=== PATIENT | female | born 1950 | race Caucasian/White ===

== ENCOUNTER → 2019-07-14 13:21 | Outpatient (CLI) | payer MEDICARE, SELFPAY ==
--- NOTE | ~2019-07-14 | DEXA_ITS ---
Bone Density Report Name: Darshana Marin Age: 68 Sex: Female Ethnicity: White Date of : 1950 Indication: postmenopausal; screening for osteoporosis; Referring Provider: TAMARA, HAM Gusman Study: Bone densitometry was performed. Exam Date: July 14, 2019 Accession number: [id number] Bone Density: Region BMD T-score Z-score Classification AP Spine (L1-L4) 0.969 -0.7 1.2 Normal Femoral Neck (Left) 0.581 -2.4 -0.8 Osteopenia Total Hip (Left) 0.766 -1.4 -0.1 Osteopenia Femoral Neck (Right) 0.563 -2.6 -0.9 Osteoporosis Total Hip (Right) 0.763 -1.5 -0.1 Osteopenia Total Hip Mean 0.765 -1.5 -0.1 Osteopenia World Health Organization criteria for BMD impression classify patients as: Normal (T-score at or above -1.0), Osteopenia (T-score between -1.0 and -2.5), or Osteoporosis (T-score at or below -2.5). 10-year Fracture Risk: FRAX not reported because: Some T-score for Spine Total or Hip Total or Femoral Neck at or below -2.5 Previous Exams: Region Exam Age BMD T-score BMD Change BMD Change Date g/cm2 vs Baseline vs Previous AP Spine(L1-L4) 07/14/2019 68 0.969 -0.7 -0.060* -0.010 04/03/2012 61 0.979 -0.6 -0.050* -0.050* 03/31/2009 58 1.029 -0.2 Total Hip(Left) 07/14/2019 68 0.766 -1.4 -0.081* -0.093* 04/03/2012 61 0.859 -0.7 0.013 0.013 03/31/2009 58 0.846 -0.8 Total Hip(Right) 07/14/2019 68 0.763 -1.5 -0.126* -0.079* 04/03/2012 61 0.842 -0.8 -0.047* -0.047* 03/31/2009 58 0.889 -0.4 *Denotes significance at 95% confidence level, LSC for AP Spine = 0.022 g/cm2, LSC for Total Hip = 0.027 g/cm2 Clinical Information Provided by Patient: Has used the following medications: Vitamin D, Calcium, LEVOTHYROXINE Patient maximum height was 66.0 Menopause Age: 51 Does not regularly consume dairy products Drinks caffeinated beverages Onset of menses at age 13 Number of children 2 Impression: The patient has osteoporosis, based on the Right Femoral Neck T-score. The BMD for the Total Hip(Left) decreased, changing by -0.093 since the last DXA exam. The BMD for the Total Hip(Right) decreased, changing by -0.079 since the last DXA exam. Discussion: INCREASED RISK OF FRACTURE. BONE DENSITY IS UNDESIRABLY LOW AT ONE OR MORE SKELETAL SITES, CONSISTENT WITH POSTMENOPAUSAL OSTEOPOROSIS. This patient's lowest T-score meets the Worl
--- NOTE | ~2019-07-14 | MM_ITS ---
EXAMINATION: MM screening viet BI w jordana HISTORY: Screening mammogram TECHNIQUE: Craniocaudal and mediolateral oblique 3-D tomosynthesis images were obtained and synthetic 2-D images were generated. CAD analysis was submitted and interpreted. COMPARISON: 10/31/2017, 10/13/2016, 09/13/2015 bilateral digital screening mammogram examinations BREAST PARENCHYMAL COMPOSITION: The breasts are heterogeneously dense, which may obscure small masses . FINDINGS: Bilateral breast biopsy markers. There are scattered bilateral benign calcifications are again noted.. There is no evidence of suspici ous mass, calcification, or architectural distortion to suggest malignancy in either breast. There steward s been no suspicious interval change. IMPRESSION: 1. No mammographic evidence of malignancy. 2. Recommend routine screening mammography in one year. BI-RADS Category 2: Benign finding(s). Reviewed, dictated and finalized at location A. [employer]
== END ==
PROVIDERS: PCP Family Medicine; Visit Provider Family Medicine
DX: Z12.31 Encounter for screening mammogram for malignant neoplasm of breast (principal); Z78.0 Asymptomatic menopausal state; M85.89 Other specified disorders of bone density and structure, multiple sites; M81.0 Age-related osteoporosis without current pathological fracture
CPT/HCPCS: 77063; 77067; 77080